=== PATIENT | female | born 1990 | race American Indian/Alaskan Native ===

== ENCOUNTER 2019-12-23 09:25 | Emergency (ER) | payer MEDICAID ==
[2019-12-23 09:41] VITALS: BP 118/84
[2019-12-23] MEDS ORDERED: SODIUM CHLORIDE 0.9% 1000 ML 1,000 ML IV ONE (10:28)
[2019-12-23] MEDS ORDERED: MORPHINE 4 MG/1 ML INJ IV ONE (10:28)
[2019-12-23] MEDS ORDERED: ONDANSETRON 4 MG/2 ML INJ IV ONE (10:28)
[2019-12-23 10:30] LABS: Basophils % (Auto) 0.2 % (0.0-1.8); Eosinophils # (Auto) 0.1 K/mm3 (0.0-0.4); Eosinophils % (Auto) 1.3 % (0.0-4.3); Hemoglobin 13.5 gm/dl (10.1-14.3); Lymphocytes % (Auto) 20.6 % (13.4-35.0); Mean Corpuscular HGB Conc 33 % (30-34); Mean Corpuscular Volume 83 fl (79-97); Monocytes # (Auto) 0.3 K/mm3 (0.0-0.8); Monocytes % (Auto) 6.6 % (0.0-7.3); Platelet Count 159 K/mm3 (140-440); Red Blood Count 4.95 M/mm3 (3.65-5.03); Red Cell Distribution Width 13.9 % (13.2-15.2)
[2019-12-23 10:44] LABS: HCG Qualitative,Urine Negative (Negative)
--- NOTE | 2019-12-23 10:44 | Emergency Department Report ---
ED Abdominal Pain HPI - General Chief Complaint: Abdominal Pain Stated Complaint: ABDOMINAL PAIN Time Seen by Provider: 12/23/19 10:08 Source: patient Mode of arrival: Wheelchair Limitations: No Limitations - History of Present Illness Initial Comments: Patient is a 29-year-old female presents emergency room with complaints of right lower abdominal pain that began yesterday. She has associated multiple episodes of nausea and vomiting. She denies any diarrhea, fever, urinary symptoms. She states that her children are sick at home also with nausea and vomiting. She denies any past medical history. She denies any allergies to medications. She states her last menstrual cycle was December 05, 2019 - Related Data Previous Rx's Medication Instructions Recorded Last Taken Type Acetaminophen [Acetaminophen TAB] 500 mg PO Q6HR #30 tablet 08/29/16 Unknown Rx HYDROcodone/APAP 5-325 [[place] 1 each PO Q6HR PRN #20 tablet 08/29/16 Unknown Rx 5/325] Ondansetron [Zofran Odt] 4 mg PO Q8HR PRN #14 tab.rapdis 12/23/19 Unknown Rx cephALEXin [Keflex] 500 mg PO BID 7 Days #14 cap 12/23/19 Unknown Rx Allergies Allergy/AdvReac Type Severity Reaction Status Date / Time No Known Allergies Allergy Verified 08/29/16 06:53 ED Review of Systems ROS: Stated complaint: ABDOMINAL PAIN Other details as noted in HPI Comment: All other systems reviewed and negative ED Past Medical Hx - Past Medical History Previous Medical History?: No Hx Hypertension: No Hx Diabetes: No Hx Deep Vein Thrombosis: No Hx Renal Disease: No Hx Sickle Cell Disease: No Hx Seizures: No Hx Asthma: No Hx HIV: No - Surgical History Past Surgical History?: Yes Additional Surgical History: tubal ligation - Social History Smoking Status: Never Smoker Substance Use Type: None - Medications Home Medications: Home Medications Medication Instructions Recorded Confirmed Last Taken Type Acetaminophen [Acetaminophen TAB] 500 mg PO Q6HR #30 tablet 08/29/16 Unknown Rx HYDROcodone/APAP 5-325 [[place] 1 each PO Q6HR PRN #20 tablet 08/29/16 Unknown Rx 5/325] Ondansetron [Zofran Odt] 4 mg PO Q8HR PRN #14 tab.rapdis 12/23/19 Unknown Rx cephALEXin [Keflex] 500 mg PO BID 7 Days #14 cap 12/23/19 Unknown Rx ED Physical Exam - General Limitations: No Limitations General appearance: alert, in no apparent distress - Head Head exam: Present: atraumatic, normocephalic - Eye Eye exam: Present: normal appearance - ENT ENT exam: Present: mucous membranes dry - Respiratory Respiratory exam: Present: normal lung sounds bilaterally. Absent: respiratory distress, wheezes, rales, rhonchi, stridor, chest wall tenderness, accessory muscle use, decreased breath sounds, prolonged expiratory - Cardiovascular Cardiovascular Exam: Present: regular rate, normal rhythm, normal heart sounds. Absent: systolic murmur, diastolic murmur, rubs, gallop - GI/Abdominal GI/Abdominal exam: Present: soft, normal bowel sounds, other (negative murphys sign, no mcburneys point tenderness ). Absent: distended, tenderness, guarding, rebound, rigid - Neurological Exam Neurological exam: Present: alert, oriented X3 - Psychiatric Psychiatric exam: Present: normal affect, normal mood - Skin Skin exam: Present: warm, dry, intact ED Course Vital Signs 12/23/19 09:39 Temperature 98.6 F Pulse Rate 101 H Respiratory 18 Rate Blood Pressure 118/84 O2 Sat by Pulse 100 Oximetry ED Medical Decision Making - Lab Data Result diagrams: 12/23/19 10:14 12/23/19 10:14 - Medical Decision Making Patient is a 29-year-old female presents emergency room with complaints of right lower abdominal pain that began yesterday. She has associated multiple episodes of nausea and vomiting. She denies any diarrhea, fever, urinary symptoms. She states that her children are sick at home also with nausea and vomiting. She denies any past medical history. She denies any allergies to medications. She states her last menstrual cycle was December 05, 2019. VSS. Labs are stable. No leukocytosis. UA shows white blood cells and leukocyte esterase, could be due to contamination from epithelial cells, will treat patient for UTI with Keflex. hCG quant is negative. No abdominal tenderness on exam, no guarding, no rebound, negative Hernandez's and McBurney's point tenderness. Patient given 1 L fluids, Zofran, morphine and symptoms improved. Patient had no further episodes of nausea and vomiting, abdominal pain resolved, she was able to tolerate p.o. intake while in the ED. Most likely viral in or igin as patient's children had the same symptoms at home. Patient given prescription for Keflex and Zofran. advised pt to please take medication as prescribed. Increase your water intake. Eat a bland diet. Follow-up with a primary care doctor in the next 24 hours for reexamination. Return to the emergency room immediately for worsening abdominal pain, fever, nausea nausea and vomiting despite medications, unable to tolerate p.o. intake, etc. - Differential Diagnosis UTI, gastritis, gastroenteritis, viral syndrome, colitis, appendicitis Critical care attestation.: If time is entered above; I have spent that time in minutes in the direct care of this critically ill patient, excluding procedure time. ED Disposition Clinical Impression: Abdominal pain Qualifiers: Abdominal location: lower abdomen, unspecified Qualified Code(s): R10.30 - Lower abdominal pain, unspecified Nausea & vomiting Qualifiers: Vomiting type: unspecified Vomiting Intractability: non-intractable Qualified Code(s): R11.2 - Nausea with vomiting, unspecified UTI (urinary tract infection) Qualifiers: Urinary tract infection type: acute cystitis Hematuria presence: without hematuria Qualified Code(s): N30.00 - Acute cystitis without hematuria Disposition: TO HOME OR SELFCARE Is pt being admited?: No Does the pt Need Aspirin: No Condition: Stable Instructions: Urinary Tract Infection in Women (ED), Abdominal Pain (ED) Additional Instructions: Please take medication as prescribed. Increase your water intake. Eat a bland diet. Follow-up with a primary care doctor in the next 24 hours for reexaminati on. Return to the emergency room immediately for worsening abdominal pain, fever, nausea nausea and vomiting despite medications, unable to tolerate p.o. intake, etc. Prescriptions: cephALEXin [Keflex] 500 mg PO BID 7 Days #14 cap Ondansetron [Zofran Odt] 4 mg PO Q8HR PRN #14 tab.rapdis PRN Reason: Nausea And Vomiting Referrals: GUNJAN FRIED MD [Staff Physician] - [address] [facility] [Outside] - 24 Hours [facility] [Outside] - 24 Hours Time of Disposition: 11:41 Print Language: UZBEK
[2019-12-23 10:54] LABS: Alanine Aminotransferase 8 units/L (7-56); Albumin 4.6 g/dL (3.9-5); BUN/Creatinine Ratio 17; Blood Urea Nitrogen 10 mg/dL (7-17); Calcium 9.4 mg/dL (8.4-10.2); Hemolysis Index 25
[2019-12-23 11:06] LABS: Bilirubin,Urine Negative (Negative); Blood,Urine Negative (Negative); Color,Urine Yellow (Yellow)
[2019-12-23 11:07] LABS: Urobilinogen,Urine < 0.2 mg/dL (<2.0)
[2019-12-23 11:16] LABS: Bacteria,Urine 4+ /HPF (Negative); Mucus,Urine 2+ /HPF
== END 2019-12-23 11:58 | disposition home or self-care (01) ==
LOC: ED 09:25
DX: N39.0 Urinary tract infection, site not specified (principal); Z98.51 Tubal ligation status; Z79.899 Other long term (current) drug therapy
CPT/HCPCS: 36415; 80053; 81001; 81025; 83690; 84702; 85025; 87086; 96361; 96374; 96375; 99283; J2270; J2405; J7030

== ENCOUNTER 2019-12-30 10:13 | Emergency (ER) | payer MEDICAID ==
--- NOTE | 2019-12-30 10:47 | Emergency Department Report ---
HPI - General Time Seen by Provider: 12/30/19 10:27 - HPI HPI: 29-year-old -[place] female presents to the emergency department via EMS from home with complaint of some palpitations that been going on since last night but resolved upon presentation. She felt like her heart was racing very fast. She denies any chest pain, shortness of breath, fever, headache. She denies any past medical history. She did not take anything, nor receive anything, for her symptoms prior to presentation today. She denies any tobacco or illicit drug use. No recent travel or sick contacts at home. ED Past Medical Hx - Past Medical History Previous Medical History?: Yes Hx Hypertension: No Hx Diabetes: No Hx Deep Vein Thrombosis: No Hx Renal Disease: No Hx Sickle Cell Disease: No Hx Seizures: No Hx Asthma: No Hx HIV: No - Surgical History Past Surgical History?: Yes Additional Surgical History: tubal ligation - Social History Smoking Status: Never Smoker Substance Use Type: None - Medications Home Medications: Home Medications Medication Instructions Recorded Confirmed Last Taken Type Acetaminophen [Acetaminophen TAB] 500 mg PO Q6HR #30 tablet 08/29/16 Unknown Rx HYDROcodone/APAP 5-325 [[place] 1 each PO Q6HR PRN #20 tablet 08/29/16 Unknown Rx 5/325] Ondansetron [Zofran Odt] 4 mg PO Q8HR PRN #14 tab.rapdis 12/23/19 Unknown Rx cephALEXin [Keflex] 500 mg PO BID 7 Days #14 cap 12/23/19 Unknown Rx ED Review of Systems ROS: Stated complaint: TACHYCARDIA Other details as noted in HPI Comment: All other systems reviewed and negative Constitutional: denies: chills, fever Respiratory: denies: cough, shortness of breath Cardiovascular: palpitations. denies: chest pain, edema Gastrointestinal: denies: abdominal pain, vomiting Musculoskeletal: denies: back pain, arthralgia Neurological: denies: headache, weakness Physical Exam - Physical Exam Vital Signs: Vital Signs 12/30/19 10:30 Temperature 98.3 F Pulse Rate 90 Respiratory 16 Rate Blood Pressure 111/82 O2 Sat by Pulse 97 Oximetry Physical Exam: GENERAL: The patient is well-developed well-nourished. HENT: Normocephalic. Atraumatic. Patient has moist mucous membranes. EYES: Extraocular motions are intact. NECK: Supple. Trachea is midline. CHEST/LUNGS: Clear to auscultation. There is no respiratory distress noted. HEART/CARDIOVASCULAR: Regular. There is no tachycardia. There is no murmur. ABDOMEN: Abdomen is soft, nontender. Patient has normal bowel sounds. There is no abdominal distention. SKIN: Skin is warm and dry. NEURO: The patient is awake, alert, and oriented. The patient is cooperative. The patient has no focal neurologic deficits. Normal speech. MUSCULOSKELETAL: There is no tenderness or deformity. There is no limitation range of motion. There is no evidence of acute injury. ED Course Vital Signs 12/30/19 10:30 Temperature 98.3 F Pulse Rate 90 Respiratory 16 Rate Blood Pressure 111/82 O2 Sat by Pulse 97 Oximetry ED Medical Decision Making - Lab Data Result diagrams: 12/30/19 10:47 12/30/19 10:47 - EKG Data -: EKG Interpreted by Me EKG shows normal: sinus rhythm, axis, intervals, QRS complexes, ST-T waves Rate: normal - EKG Data When compared to previous EKG there are: previous EKG unavailable Interpretation: normal EKG - Radiology Data Radiology results: image reviewed interpreted by me: Chest x-ray does not show any acute process. There are no pleural effusions, obvious pneumonia and there is no pneumothorax. - Medical Decision Making This patient presents with a complaint of some palpitations since last night. EKG does not show any signs of ST elevation DC or dysrhythmia. Her labs have been unremarkable including CBC, metabolic panel, TSH, d-dimer level. Patient did have ketones in her urine but no signs of any urinary tract infection. Patient admits to a decreased appetite and has not been eating or drinking much. This may be an attributing reason for her palpitations. Also, the patient just recently started Macrobid for a urinary tract infection. Urinalysis did not show any signs of urinary tract infection and therefore the patient was told to discontinue the antibiotics as she has already taken multiple days of Keflex. She has been given a referral for cardiology. She will return to the ER with any worsening of her symptoms or any acute distress. - Differential Diagnosis Dysrhythmia, hyperthyroidism, PE, electrolyte abnormalities Critical Care Time: No Critical care attestation.: If time is entered above; I have spent that time in minutes in the direct care of this critically ill patient, excluding procedure time. ED Disposition Clinical Impression: Palpitations Disposition: DC-01 TO HOME OR SELFCARE Is pt being admited?: No Condition: Stable Instructions: Palpitations (ED) Additional Instructions: Please follow-up with a primary care physician in the next few days. I am giving you a referral for a local mastic man, Dr. Xavier, to follow-up regarding your palpitations. Return to the emergency department with any worsening of your symptoms or any acute distress. Referrals: PRIMARY CAREMD [Primary Care Provider] - 3-5 Days EVERTON XAVIER MD [Staff Physician] - 3-5 Days Time of Disposition: 13:51
[2019-12-30 11:37] VITALS: BP 118/72
[2019-12-30 11:37] LABS: Basophils % (Auto) 0.7 % (0.0-1.8); Eosinophils # (Auto) 0.1 K/mm3 (0.0-0.4); Eosinophils % (Auto) 3.1 % (0.0-4.3); Hematocrit 37.6 % (30.3-42.9); Hemoglobin 12.2 gm/dl (10.1-14.3); Lymphocytes # (Auto) 1.1 K/mm3 (1.2-5.4); Lymphocytes % (Auto) 34.5 % (13.4-35.0); Mean Corpuscular HGB Conc 33 % (30-34); Mean Corpuscular Volume 82 fl (79-97); Monocytes # (Auto) 0.3 K/mm3 (0.0-0.8); Monocytes % (Auto) 8.8 % (0.0-7.3); Platelet Count 179 K/mm3 (140-440); Red Blood Count 4.57 M/mm3 (3.65-5.03); Red Cell Distribution Width 13.9 % (13.2-15.2)
--- NOTE | 2019-12-30 11:54 | XRay Report ---
CHEST 1 VIEW 12/30/2019 11:30 AM INDICATION / CLINICAL INFORMATION: Chest pain. COMPARISON: None available. FINDINGS: SUPPORT DEVICES: None. HEART / MEDIASTINUM: No significant abnormality. LUNGS / PLEURA: No significant pulmonary or pleural abnormality. No pneumothorax. ADDITIONAL FINDINGS: No significant additional findings. IMPRESSION: 1. No acute abnormality of the chest. Signer Name: Ishan Simpson MD Signed: 12/30/2019 11:49 AM Workstation Name: [id number]
[2019-12-30 11:56] LABS: BUN/Creatinine Ratio 15; Blood Urea Nitrogen 9 mg/dL (7-17); Calcium 8.7 mg/dL (8.4-10.2); Hemolysis Index 23
[2019-12-30] MEDS ORDERED: KETOROLAC 30 MG/1 ML INJ IV ONE (12:11)
[2019-12-30 13:48] LABS: Bacteria,Urine 1+ /HPF (Negative); Bilirubin,Urine NEG (Negative); Blood,Urine NEG (Negative); Color,Urine Yellow (Yellow); Mucus,Urine 1+ /HPF; Protein,Urine <15 mg/dL mg/dL (Negative); Urobilinogen,Urine < 2.0 mg/dL (<2.0); WBC,Urine < 1.0 /HPF (0.0-6.0)
[2019-12-30 13:56] LABS: RBC,Urine < 1.0 /HPF (0.0-6.0)
== END 2019-12-30 13:59 | disposition home or self-care (01) ==
LOC: ED 10:13
DX: R00.2 Palpitations (principal); Z98.51 Tubal ligation status; Z79.899 Other long term (current) drug therapy
CPT/HCPCS: 36415; 71045; 80048; 81001; 84443; 84703; 85025; 85379; 93005; 93010; 96374; 99285; J1885